=== PATIENT | male | born 1940 | race Caucasian/White ===

== ENCOUNTER 2021-12-16 11:17 | Emergency (ER) | payer MEDICARE, SELFPAY ==
--- NOTE | 2021-12-16 11:37 | ED.WOUNDLAC ---
HPI - Wound/Laceration General Chief Complaint: Wound/Laceration Stated Complaint: dog bite Time Seen by Provider: 12/16/21 11:45 Source: patient and RN notes reviewed Mode of arrival: ambulatory Limitations: no limitations History of Present Illness HPI narrative: 81-year-old male presented for complaint of dog bite to the right hand, onset 10 days ago. He endorses pain is about a 3 out of 10 and increases to 5 out of 10 with movement. Endorses mild swelling and bruising. He is on blood thinner warfarin and Plavix. Has been keeping the area clean and dry. He states the dog is a family pet and is up-to-date on vaccinations, patient is up-to-date on tetanus. Denies redness, streaking, pus/drainage; chest pain, shortness of breath, nausea, vomiting, diarrhea, fever or chills. While the patient attempted to remove the Band-Aid he inadvertently caused a skin tear in the exam room as well. Related Data Home Medications Medication Instructions Recorded Confirmed clopidogrel 12/16/21 ezetimibe mg 12/16/21 furosemide 12/16/21 hydralazine 12/16/21 isosorbide mononitrate mg PO 12/16/21 metoprolol succinate PO 12/16/21 nitroglycerin mg 12/16/21 pravastatin 12/16/21 warfarin 12/16/21 warfarin 12/16/21 Allergies Allergy/AdvReac Type Severity Reaction Status Date / Time simvastatin Allergy Unknown Verified 12/16/21 11:59 Sulfa (Sulfonamide Allergy Unknown Verified 12/16/21 11:59 Antibiotics) Review of Systems Review of Systems: CONSTITUTIONAL: Denies body aches, fever, chills, or sweats. EYES: Denies visual changes, redness, or discharge. ENT: Denies rhinorrhea, congestion, sore throat, or otalgia. CARDIOVASCULAR: Denies chest pain, palpitations, or edema. RESPIRATORY: Denies cough or dyspnea. GASTROINTESTINAL: Denies abdominal pain, nausea, vomiting, or diarrhea. GENITOURINARY: Denies dysuria or hematuria. SKIN: endorses puncture wound/animal bite right hand MUSCULOSKELETAL: Denies back pain, joint pain, or myalgia. NEUROLOGIC: Denies headache, numbness, tingling, or weakness. PSYCH: Denies depression or anxiety. PMFSH Comments At time of signature, I have reviewed and agree with nursing past medical, surgical, social and family history unless otherwise noted. Please see nursing chart for further information. There is no relevant family history pertinent to the presenting complaint Exam Narrative: GENERAL: Well-appearing, well-nourished, and in no acute distress. HEAD: Normocephalic, atraumatic. EYES: conjunctivae clear, and EOMI. ENT: Mucous membranes moist. Oropharynx without edema, erythema or lesions. NECK: Supple. No lymphadenopathy CHEST: Clear to auscultation. No respiratory distress. HEART: Regular rate and rhythm. SKIN: Warm, dry. thin skin; right hand dorsal surface between 3rd and 4th metacarpal with 0.5 cm scabbed laceration, approximated, no active drainage, or induration with mild swelling and erythema surrounding the site; new skin tear to right hand dorsal surface at 1st metacarpal resulted in 3alk4ry skin tear, unapproximated, bleeding controlled NEURO: Alert and oriented x3. PSYCH: Normal mood and affect Course Course Emergency Course: new skin tear to right hand dorsal surface at 1st metacarpal after pt pulled bandaid while RN attempted to remove with saline soaked gauze, resulted in skin tear approx 2cm x1cm, unapproximated, approx 0.5cm diameter piece of skin remained on bandaid; moderate bleeding was controlled and steri strips applied with peroxide, nonadhesive gauze and coban tape; pt tolerated well Patient is aware of diagnosis, understands and agrees to treatment plan. Anticipatory guidance given. Patient agrees to follow-up as directed and is aware of reasons to seek care at the emergency department. Portions of this record may have been created with voice recognition software Level of Care: Express Care Visit Vital Signs Vital signs: Reviewed Discharge Pl
[2021-12-16 11:42] VITALS: BP 140/77; PULSE 92; RESP 18; TEMP 37.1; O2SAT 98
== END 2021-12-16 12:06 | disposition home or self-care (01) ==
PROVIDERS: Emergency Provider Nurse Practitioner Family; PCP Family Medicine
DX: S61.411A Laceration without foreign body of right hand, initial encounter (principal); W54.0XXA Bitten by dog, initial encounter
CPT/HCPCS: 99213; G0463

== ENCOUNTER 2022-03-15 11:34 | Emergency (ER) | payer MEDICARE, SELFPAY ==
[2022-03-15 11:50] VITALS: BP 122/69; PULSE 86; RESP 20; TEMP 36.6; O2SAT 99
--- NOTE | 2022-03-15 11:54 | ED.LOWEXIN ---
HPI - Extremity Injury (Lower) General Chief Complaint: Extremity Injury, Lower Stated Complaint: rt leg injury Time Seen by Provider: 03/15/22 11:50 Source: patient Mode of arrival: ambulatory Limitations: no limitations History of Present Illness HPI Narrative: Complaining of mild pain in little bit of swelling and right mid lower leg after hitting on a tractor getting off 3 weeks ago is improved but still has not disappeared completely. He is concerned that it does not turn into an infection like the 1 that killed his 7 years ago Related Data Home Medications Medication Instructions Recorded Confirmed clopidogrel 12/16/21 ezetimibe mg 12/16/21 furosemide 12/16/21 hydralazine 12/16/21 isosorbide mononitrate mg PO 12/16/21 metoprolol succinate PO 12/16/21 nitroglycerin mg 12/16/21 pravastatin 12/16/21 warfarin 12/16/21 warfarin 12/16/21 Allergies Allergy/AdvReac Type Severity Reaction Status Date / Time simvastatin Allergy Unknown Verified 03/15/22 11:54 Sulfa (Sulfonamide Allergy Unknown Verified 03/15/22 11:54 Antibiotics) Review of Systems Review of Systems: CONSTITUTIONAL: Denies fever, chills, sweats. EYES: Denies visual changes, redness, discharge. ENT: Denies rhinorrhea, congestion, sore throat, otalgia. CARDIOVASCULAR: Denies chest pain, palpitations, edema. RESPIRATORY: Denies dyspnea, wheezing, cough GASTROINTESTINAL: Denies abdominal pain, nausea, vomiting, diarrhea. GENITOURINARY: Denies dysuria, hematuria, abnormal discharge SKIN: Denies rash or itching. NEUROLOGIC: Denies numbness, or focal weakness. PSYCHIATRIC: Denies anxiety or depression. Right lower leg injury injury, remote PMFSH Past Medical History Medical History Chronic anticoagulation DVT (deep venous thrombosis) High blood pressure Social History Social History (Updated 03/15/22 @ 12:01 by Jeana Blake CNP) Smoking status: Former smoker Alcohol intake: current Comments At time of signature, I agree with nursing past medical, surgical, social and family history. There is no relevant family history pertinent to the presenting complaint. Exam Narrative: GENERAL: This is a well-nourished, well-developed patient, in mild distress. HEAD: normocephalic, atraumatic. EYES: PERRL. Sclera clear/white. Vision is grossly intact. EARS: External ears normal, auditory canals clear and without drainage, TMs normal without perforation. Hearing grossly intact. NOSE: External nose normal without nasal discharge, nares without redness, no rhinorrhea. THROAT: Mucous membranes moist, posterior pharynx NECK: Neck supple, non-tender CARDIOVASCULAR: Regular rate and rhythm without murmurs, gallops, or rubs. RESPIRATORY: Clear to auscultation. Breath sounds equal bilaterally. No wheezes, rales, or rhonchi. GASTROINTESTINAL: Abdomen soft, non-tender, SKIN: warm, intact with no suspicious lesions or rash, good texture and turgor. NEURO: awake, alert, and oriented to person, place and time. There were no obvious focal neurologic abnormalities. Steady gait EXTREMITIES: Normal range of motion. Chronically swollen right leg that he wears compression stocking on that has a very light bruise mid tibia that is mildly tender slightly indurated but has not totally disappeared from the injury 3 weeks ago no erythema no induration no increased swelling, patient able to ambulate without difficulty BACK: Nontender without deformity Course Course Emergency Course: Patient here with a 3-week old lower right extremity injury that is improving Wants definitive answer on whether or not there is any underlying issue going on with the old hematoma on his lower right leg based on his experience with his 's 7 years ago and her development of fasciitis Referred back to his primary care physician for further imaging and evaluation Level of Care: Express Care Visit Vit
== END 2022-03-15 12:08 | disposition home or self-care (01) ==
PROVIDERS: Emergency Provider Nurse Practitioner; PCP Family Medicine
DX: S89.91XS Unspecified injury of right lower leg, sequela (principal); Z79.01 Long term (current) use of anticoagulants; Z86.718 Personal history of other venous thrombosis and embolism; Z87.891 Personal history of nicotine dependence; W22.8XXA Striking against or struck by other objects, initial encounter
CPT/HCPCS: 99213; G0463

== ENCOUNTER 2024-02-06 12:52 | Outpatient (CLI) | payer MEDICARE, SELFPAY ==
--- NOTE | ~2024-02-06 | XR_ITS ---
Clinical Indication: Bronchitis PA and lateral views of the chest: Comparison: None Findings: The lungs are clear, without evidence of focal consolidation or pleural effusion. Cardiome diastinal silhouette is within normal limits, with pacemaker device. Bones and soft tissues are unrem arkable. Impression: Clear lungs. Reviewed, dictated and finalized at location . Impression: Clear lungs.
== END 2024-02-06 12:53 | disposition home or self-care (01) ==
PROVIDERS: PCP Family Medicine; Visit Provider Family Medicine
DX: J20.9 Acute bronchitis, unspecified (principal)
CPT/HCPCS: 71046

== ENCOUNTER 2024-07-06 10:36 | Emergency (ER) | payer MEDICARE, SELFPAY ==
--- NOTE | 2024-07-06 10:55 | ED.MALEGU ---
HPI - Male Genitourinary General Chief complaint: Urogenital-Male Stated complaint: uti symptoms Time Seen by Provider: 07/06/24 10:55 Source: patient Mode of arrival: ambulatory Limitations: no limitations History of Present Illness HPI Narrative: Piero is an 83-year-old male patient presenting to the clinic today with complaints of possible urinary tract infection since yesterday. He reports burning with urination. History of frequent UTIs. Denies any known fever or chills but has had some body aches. states she felt as though he was feverish however he does not have a temperature in the clinic today. He denies any back pain or lower abdominal pain. No nausea or vomiting. Related Data Home Medications Medication Instructions Recorded Confirmed clopidogrel 75 mg tablet 12/16/21 ezetimibe 10 mg tablet mg 12/16/21 furosemide 40 mg tablet 12/16/21 hydralazine 25 mg tablet 12/16/21 isosorbide mononitrate 60 mg mg PO 12/16/21 tablet,extended release 24 hr metoprolol succinate 50 mg PO 12/16/21 tablet,extended release 24 hr pravastatin 10 mg tablet 12/16/21 warfarin 5 mg tablet 12/16/21 cholecalciferol (vitamin D3) 10 10 mcg PO DAILY 07/06/24 07/06/24 mcg (400 unit) tablet docusate sodium 100 mg capsule 100 mg PO DAILY 07/06/24 07/06/24 (Dulcolax Stool Softener (docusate)) fiber cap PO 07/06/24 [id number] 120 mcg-lutein tablet PO 07/06/24 150 mcg-herb 50 mg chewable tablet (Alive Men's 50 Plus Multivitamin) Allergies Allergy/AdvReac Type Severity Reaction Status Date / Time simvastatin Allergy Unknown Unknown Verified 07/06/24 11:26 Sulfa (Sulfonamide Allergy Unknown Unknown Verified 07/06/24 11:26 Antibiotics) Review of Systems Review of Systems: Pertinent positives per HPI. Patient denies any fever, chills, rash, headache, visual changes, dizziness, cough, runny nose, sore throat, shortness of breath, chest pain, palpitations, nausea, vomiting, diarrhea, constipation, abdominal pain. PMFSH Past Medical History Medical History Chronic anticoagulation DVT (deep venous thrombosis) High blood pressure Social History Social History Smoking status: Former smoker Alcohol intake: current Comments At the time of my signature, I reviewed and agree with the nursing past medical, surgical, social, and family history. There is no relevant family history pertinent to the patient complaint. Exam Narrative: General: Well-developed, well nourished, in no apparent distress. Head: Normocephalic, atraumatic. Cardio: Regular rate and rhythm, s1 and s2 normal, no murmur appreciated. Resp: Clear to auscultation bilaterally, no rhonchi, rales, wheezing or rubs. Abdomen: Soft, pliable, bowel sounds present in all quadrants, suprapubic-tender to palpation, no organomegly, no CVAT tenderness. Course Course Emergency Course: Portions of this record may have been created with voice recognition software. Level of Care: Express Care Visit Vital Signs Vital signs: Vital Signs Temperature 36.8 C 07/06/24 11:03 Pulse Rate 80 07/06/24 11:03 Respiratory Rate 18 07/06/24 11:03 Blood Pressure 154/77 H 07/06/24 11:03 Pulse Oximetry 98 07/06/24 11:03 Oxygen Delivery Room Air 07/06/24 11:03 Temperature 36.8 C 07/06/24 11:03 Pulse Rate 80 07/06/24 11:03 Respiratory Rate 18 07/06/24 11:03 Blood Pressure 154/77 H 07/06/24 11:03 Pulse Oximetry 98 07/06/24 11:03 Oxygen Delivery Room Air 07/06/24 11:03 Vital signs reviewed MDM - Male Genitourinary MDM Narrative Medical decision making narrative: At the time of visit patient is resting comfortably on the exam table. Patient appears to be nontoxic. Labs: Urine positive for leukocytes, blood, nitrates, and protein. We will send urine for culture Plan:
[2024-07-06 11:03] VITALS: BP 154/77; PULSE 80; RESP 18; TEMP 36.8; O2SAT 98
[2024-07-06 11:12] LABS: EDUAAPPEAR Cloudy; EDUABILI 1+; EDUABLOOD 2+; EDUACOLOR1 Yellow; EDUAGLUCOSE Negative; EDUAKETONE Negative; EDUALEUKO 1+; EDUANITRATE Positive; EDUAPROTEIN 3+; EDUASPGRAVITY 1.025; EDUAUROBILI 0.2
== END 2024-07-06 11:45 | disposition home or self-care (01) ==
PROVIDERS: Emergency Provider Nurse Practitioner Family; PCP Family Medicine
DX: N30.01 Acute cystitis with hematuria (principal); B96.20 Unspecified Escherichia coli [E. coli] as the cause of diseases classified elsewhere; I10 Essential (primary) hypertension; Z86.718 Personal history of other venous thrombosis and embolism; Z87.891 Personal history of nicotine dependence
CPT/HCPCS: 81003; 87077; 87086; 87088; 87186; 99213; G0463